=== PATIENT | male | born 1980 ===

== ENCOUNTER 2018-07-28 20:48 | Emergency (ER) | payer SELFPAY ==
[2018-07-28 21:04] VITALS: BP 128/88; PULSE 90; TEMP 98.8; O2SAT 97
--- NOTE | 2018-07-28 21:28 | C.PDOC ---
History Of Present Illness 37 y/o male presents to the ED for evaluation of persistent pain to left wrist for the past month. 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 He reports having pain there since. Patient did not seek medical attention at that time. He has tried taking Tylenol at home without significant relief. Otherwise he denies any numbness or weakness. Time Seen by Provider: 07/28/18 21:02 Chief Complaint (Nursing): Upper Extremity Problem/Injury History Per: Patient History/Exam Limitations: no limitations Onset/Duration Of Symptoms: Days Current Symptoms Are (Timing): Still Present Quality: "Pain" Past Medical History Reviewed: Historical Data, Nursing Documentation, Vital Signs Vital Signs: Last Vital Signs Temp 98.8 F 07/28/18 21:04 Pulse 90 07/28/18 21:04 Resp 16 07/28/18 21:04 BP 128/88 07/28/18 21:04 Pulse Ox 97 07/28/18 21:04 - Medical History PMH: No Chronic Diseases Family History: States: Unknown Family Hx - Social History Hx Alcohol Use: No Hx Substance Use: No - Immunization History Hx Tetanus Toxoid Vaccination: Yes Hx Influenza Vaccination: Yes Hx Pneumococcal Vaccination: No Review Of Systems Constitutional: Negative for: Fever Musculoskeletal: Positive for: Arm Pain (left wrist) Skin: Negative for: Lesions (or open wound) Neurological: Negative for: Weakness, Numbness Physical Exam - Physical Exam Appears: Well, Non-toxic, No Acute Distress Skin: Normal Color, Warm, No Rash Head: Atraumatic, Normacephalic Eye(s): bilateral: Normal Inspection (no scleral icterus) Neck: Normal ROM Chest: Symmetrical Respiratory: No Accessory Muscle Use, Other (Normal inspiratory effort) Extremity: Normal ROM (Full ROM of wrist), Tenderness (to radial aspect of left wrist), Capillary Refill (<2sec), Swelling (Mild swelling over the extensor tendon of left wrist, no erythema or skin changes), Other (+ Neel sign) Pulses: Left Radial: Normal, Right Radial: Normal Neurological/Psych: Oriented x3, Normal Cranial Nerves, Normal Motor, Normal Sensation ED Course And Treatment O2 Sat by Pulse Oximetry: 97 (RA) Pulse Ox Interpretation: Normal Medical Decision Making Medical Decision Making: Impression: Wrist injury, r/o fracture Plan: - Left wrist x-ray Imaging reviewed, results discussed with patient. Counseled regarding diagnosis of tendonitis in the wrist. thumb Splint applied. Patient instructed to take nsaids for pain instead of Tylenol. Disposition Counseled Patient/Family Regarding: Studies Performed, Diagnosis, Need For Followup - Disposition Referrals: Tiffany Yi MD [Staff Provider] - Disposition: HOME/ ROUTINE Disposition Time: 21:48 Condition: STABLE Additional Instructions: david ibuprofeno 600 mg por va oral irasema veces al da segn sea necesario para el dolor. Instructions: Tendonitis (DC) Forms: Gen Discharge Inst Malay, [employer] (Malay) Print Language: BERMUDIAN - Clinical Impression Clinical Impression: Tendonitis of wrist, left - PA / DRY SANDER / Resident Statement MD/DO has reviewed & agrees with the documentation as recorded. - Scribe Statement The provider has reviewed the documentation as recorded by the Scribe Roula Garcia All medical record entries made by the Scribe were at my direction and personally dictated by me. I have reviewed the chart and agree that the record accurately reflects my personal performance of the history, physical exam, medical decision making, and the department course for this patient. I have also personally directed, reviewed, and agree with the discharge instructions and disposition.
[2018-07-28 22:09] VITALS: RESP 20
--- NOTE | 2018-07-29 09:44 | RAD ---
Date of service: 07/28/2018 PROCEDURE: Left Wrist Radiographs. HISTORY: pain COMPARISON: None. FINDINGS: BONES: Normal. No fracture. No erosions seen JOINTS: Normal. No dislocation. SOFT TISSUES: Normal. OTHER FINDINGS: None. IMPRESSION: Normal left wrist radiographs.
== END 2018-07-28 22:08 | disposition home or self-care (01) ==
LOC: C.ER 20:48
DX: M77.9 Enthesopathy, unspecified (principal)